=== PATIENT | female | born 1955 | race Caucasian/White ===

== ENCOUNTER → 2018-06-18 10:58 | Outpatient (CLI) | payer BC, SELFPAY ==
[2018-06-17 14:24] VITALS: BMI 33.0
[2018-06-22 14:40] LABS: HPV Reflexed? NOT INDICATED
== END ==
PROVIDERS: PCP Family Medicine; Visit Provider Family Medicine
DX: Z01.419 Encounter for gynecological examination (general) (routine) without abnormal findings (principal)
CPT/HCPCS: 88175; G0145

== ENCOUNTER 2021-04-03 15:57 | Outpatient (CLI) | payer OTHER, SELFPAY ==
[2021-04-03 16:49] LABS: ALB/GLOB Ratio 1.1 RATIO (0.9-2.4); AST(SGOT) 15 U/L (15-37); Alanine Aminotransfer ALT/SGPT 24 U/L (13-56); Albumin, Serum 3.9 g/dL (3.2-5.0); Alkaline Phosphatase 55 U/L (45-117); Anion Gap 5 (5-15); BUN 16 mg/dL (7-18); BUN/Creat Ratio 17.9 RATIO (10-20); Calcium,Total 8.6 mg/dL (8.5-10.1); Chloride 105 mmol/L (98-107); Creatinine, Serum 0.89 mg/dL (0.55-1.02); EST Glomerular Filtration Rate 68 mL/min (>60); Est Glom Filt Rate - Afr Amer 82 mL/min (>60); Globulin 3.7 g/dL (2.2-4.2); Glucose 104 mg/dL (74-106); Potassium 4.2 mmol/L (3.5-5.1); Protein, Total 7.6 g/dL (6.4-8.2); Sodium Level 139 mmol/L (136-145)
[2021-04-03 17:16] LABS: Vitamin D,25 Hydroxy 49.1 ng/mL
== END 2021-04-03 23:59 | disposition home or self-care (01) ==
LOC: BIMLAB 15:58
PROVIDERS: PCP Family Medicine; Referring Provider Family Medicine; Visit Provider Family Medicine
DX: R79.89 Other specified abnormal findings of blood chemistry (principal)
CPT/HCPCS: 36415; 80053; 82306

== ENCOUNTER 2021-05-09 10:43 | Outpatient (CLI) | payer OTHER, SELFPAY ==
--- NOTE | 2021-05-09 10:53 | BD_ITS ---
STUDY: DUAL ENERGY X-RAY ABSORPTIOMETRY / DXA REASON FOR EXAM: Female, 65 years old. Osteopenia TECHNIQUE: Bone Mineral Density (BMD) measurements of lumbar spine and bilateral hips were obtained. COMPARISON: None. FINDINGS: Lumbar Spine (L1-L4): g/cm2 (0.909) / T-score (-1.7) / Z-score (0.0) Findings are suggestive of osteopenia with a moderate fracture risk. Left Femur Total: g/cm2 (0.770) / T-score (-1.4) / Z-score (-0.3) Left Femoral Neck: g/cm2 (0.567) / T-score (-2.5) / Z-score (-1.1) Right Femur Total: g/cm2 (0.819) / T-score (-1.0) / Z-score (0.1) Right Femoral Neck: g/cm2 (0.564) / T-score (-2.6) / Z-score (-1.1) BD/Dexa Bone Density Study IMPRESSION: The patient is considered osteoporotic as outlined below according to World Dariusz Organization (WHO) criteria with a high fracture risk. Reference Information: The T-score is the number of standard deviations above or below the standard which is normal for young adults at their peak bone mineral density. The World Health Organization (WHO) interprets the T-scores as follows: Above -1 Normal bone density Between -1 and -2.5 Osteopenia Equal to / or below -2.5 Osteoporosis As a practical clinical guideline, osteopenia may be graded as follows: Mild -1 through -1.5 Moderate -1.6 through -2.0 Severe -2.1 through -2.4 The Z-score is the number of standard deviations above or below age-matched controls. A Z-score of less than -1.5 would be considered abnormal. References: 1. NIH Osteoporosis and Related Bone Diseases www osteo.org 2. International Society for Clinical Densitometry www iscd.org 3. National Osteoporosis Foundation www nof.org Electronically Signed: Wallace Mcallister MD at 10:13 EDT ,
== END 2021-05-09 23:59 | disposition home or self-care (01) ==
PROVIDERS: PCP Family Medicine; Visit Provider Family Medicine
DX: M85.80 Other specified disorders of bone density and structure, unspecified site (principal)
CPT/HCPCS: 77080

== ENCOUNTER → 2022-09-05 | Outpatient (CLI) | payer MEDICARE, SELFPAY ==
[2022-09-05 16:52] LABS: Absolute Lymphocyte Count 2.14 X10^3/uL (0.83-4.51); Absolute Neutrophil Count 2.9 X10^3/uL (2.0-7.7); Basophil# 0.04 X10^3/uL; Basophil% 0.7 % (0-1); Eosinophil# 0.06 X10^3/uL; Eosinophils% 1.1 % (0-5); Hematocrit 39.8 % (37-47); Hemoglobin 12.9 g/dL (12.0-15.0); Lymphocyte # 2.14 X10^3/ul (0.83-4.51); Lymphocyte % 37.5 % (19-41); Mean Corp Hgb Conc 32.4 g/dL (32-36); Mean Corpuscular Hgb 31.7 pg (27.0-32.0); Mean Corpuscular Volume 97.8 fL (81-99); Monocyte# 0.51 X10^3/uL; Monocyte% 8.9 % (0-10); NRBC Flagged by Analyzer 0 % (0-5); Neutrophil # 2.94 X10^3/uL (2.7-7.7); Neutrophil % 51.6 % (47-70); Platelet Count 273 K/mm3 (150-450); RBC Distribution Width SD 46.1 fl (35.1-43.9); Red Blood Count 4.07 M/mm3 (4.2-5.4); White Blood Count 5.7 K/mm3 (4.4-11.0)
[2022-09-05 17:32] LABS: Vitamin D,25 Hydroxy 67.1 ng/mL
[2022-09-05 17:34] LABS: Hemoglobin A1c 5.2 % (3.8-5.6)
[2022-09-05 17:47] LABS: AST(SGOT) 14 U/L (15-37); Alanine Aminotransfer ALT/SGPT 22 U/L (13-56); Albumin, Serum 3.7 g/dL (3.2-5.0); Alkaline Phosphatase 58 U/L (45-117); Anion Gap 4 (5-15); BUN 18 mg/dL (7-18); BUN/Creat Ratio 16.8 RATIO (10-20); Calcium,Total 8.7 mg/dL (8.5-10.1); Chloride 104 mmol/L (98-107); Cholesterol 224 mg/dL (200); Creatinine, Serum 1.07 mg/dL (0.55-1.02); EST Glomerular Filtration Rate 55 mL/min (>60); Est Glom Filt Rate - Afr Amer 66 mL/min (>60); Globulin 3.6 g/dL (2.2-4.2); Glucose 144 mg/dL (74-106); High Density Lipoprotein 48 mg/dL; Potassium 4.2 mmol/L (3.5-5.1); Protein, Total 7.3 g/dL (6.4-8.2); Sodium Level 137 mmol/L (136-145); Triglycerides 296 mg/dL; Very Low Density Lipoprotein 59 mg/dL (5-40)
== END | disposition home or self-care (01) ==
PROVIDERS: PCP Family Medicine; Referring Provider Family Medicine; Visit Provider Family Medicine
DX: Z00.00 Encounter for general adult medical examination without abnormal findings (principal); R79.89 Other specified abnormal findings of blood chemistry; M85.80 Other specified disorders of bone density and structure, unspecified site
CPT/HCPCS: 36415; 80053; 80061; 82306; 83036; 85025

== ENCOUNTER → 2022-10-03 | Outpatient (CLI) | payer MEDICARE, SELFPAY | END | disposition home or self-care (01) | LOC: BIMLAB 12:57 | PROVIDERS: PCP Family Medicine; Referring Provider Family Medicine; Visit Provider Family Medicine | DX: R73.01 Impaired fasting glucose (principal) ==

== ENCOUNTER → 2023-06-12 | Outpatient (CLI) | payer MEDICARE, SELFPAY ==
[2023-06-12 10:48] LABS: ALB/GLOB Ratio 0.9 RATIO (0.9-2.4); AST(SGOT) 16 U/L (15-37); Alanine Aminotransfer ALT/SGPT 19 U/L (13-56); Albumin, Serum 3.7 g/dL (3.2-5.0); Alkaline Phosphatase 50 U/L (45-117); Anion Gap 3 (5-15); BUN 15 mg/dL (7-18); BUN/Creat Ratio 17.2 RATIO (10-20); Calcium,Total 9.3 mg/dL (8.5-10.1); Chloride 105 mmol/L (98-107); Cholesterol 229 mg/dL (200); Creatinine, Serum 0.87 mg/dL (0.55-1.02); EST Glomerular Filtration Rate 69 mL/min (>60); Est Glom Filt Rate - Afr Amer 83 mL/min (>60); Globulin 3.9 g/dL (2.2-4.2); Glucose 107 mg/dL (74-106); High Density Lipoprotein 55 mg/dL; Potassium 4.6 mmol/L (3.5-5.1); Protein, Total 7.6 g/dL (6.4-8.2); Sodium Level 137 mmol/L (136-145); Triglycerides 195 mg/dL; Very Low Density Lipoprotein 39 mg/dL (5-40)
[2023-06-12 10:50] LABS: Vitamin D,25 Hydroxy 92.4 ng/mL
== END | disposition home or self-care (01) ==
LOC: BIMLAB 08:55
PROVIDERS: PCP Family Medicine; Visit Provider Family Medicine
DX: K29.60 Other gastritis without bleeding (principal); R79.89 Other specified abnormal findings of blood chemistry; M81.0 Age-related osteoporosis without current pathological fracture
CPT/HCPCS: 36415; 80053; 80061; 82306

== ENCOUNTER → 2023-07-08 | Outpatient (CLI) | payer MEDICARE, SELFPAY ==
--- NOTE | 2023-07-08 13:55 | BD_ITS ---
STUDY: DUAL ENERGY X-RAY ABSORPTIOMETRY / DXA REASON FOR EXAM: Female, 67 years old. Osteoporosis TECHNIQUE: Bone Mineral Density (BMD) measurements of lumbar spine and bilateral hips were obtained. COMPARISON: Comparison is made with prior study dated May 09, 2021. FINDINGS: Lumbar Spine (L1-L4): g/cm2 (0.962) / T-score (-0.8) / Z-score (1.0) Findings are suggestive of normal bone density with a low fracture risk. Left Femur Total: g/cm2 (0.765) / T-score (-1.5) / Z-score (-0.2) Left Femoral Neck: g/cm2 (0.529) / T-score (-2.9) / Z-score (-1.3) Right Femur Total: g/cm2 (0.817) / T-score (-1.0) / Z-score (0.2) Right Femoral Neck: g/cm2 (0.563) / T-score (-2.6) / Z-score (-1.0) The T-Scores on the most recent prior examination were: Lumbar Spine (L1-L4): There has been improvement of bone density since the previous examination. Left Femur Total: which represents a worsening of 0.7%. Right Femur Total: which represents a worsening of 0.2%. BD/Dexa Bone Density Study IMPRESSION: The patient is considered osteoporotic as outlined below according to World Dariusz Organization (WHO) criteria with a high fracture risk. There has been worsening of bone density since the previous examination. Reference Information: The T-score is the number of standard deviations above or below the standard which is normal for young adults at their peak bone mineral density. The World Health Organization (WHO) interprets the T-scores as follows: Above -1 Normal bone density Between -1 and -2.5 Osteopenia Equal to / or below -2.5 Osteoporosis As a practical clinical guideline, osteopenia may be graded as follows: Mild -1 through -1.5 Moderate -1.6 through -2.0 Severe -2.1 through -2.4 The Z-score is the number of standard deviations above or below age-matched controls. A Z-score of less than -1.5 would be considered abnormal. References: 1. NIH Osteoporosis and Related Bone Diseases www osteo.org 2. International Society for Clinical Densitometry www iscd.org 3. National Osteoporosis Foundation www nof.org Electronically Signed: Wallace Mcallister MD at 14:42 EDT ,
--- NOTE | 2023-07-08 13:56 | RAD_ITS ---
STUDY: X-RAY EXAMINATION: SCOLIOSIS SERIES REASON FOR EXAM: Female, 67 years old. Scoliosis TECHNIQUE: 3 view(s) of the thoracolumbar spine were obtained in the upright standing position. COMPARISON: None. FINDINGS: There is a 11.9 degree dextroscoliosis scoliosis of the lumbar spine with the apex of the convexity at the L2-L3 level. . There is multilevel endplate spondylosis of the thoracic vertebrae. There is multilevel disc space narrowing of the thoracic spine. There is multilevel disc space narrowing of the lumbar spine. The soft tissue structures are unremarkable. RAD/Scoliosis 2 or 3 views IMPRESSION: 11.9 degree dextro scoliosis centered at the L2-L3 level. Electronically Signed: Wallace Mcallister MD at 9:11 EDT ,
== END | disposition home or self-care (01) ==
PROVIDERS: PCP Family Medicine; Referring Provider Family Medicine; Visit Provider Family Medicine
DX: M81.0 Age-related osteoporosis without current pathological fracture (principal); M95.5 Acquired deformity of pelvis
CPT/HCPCS: 72082; 77080

== ENCOUNTER → 2023-10-24 | Outpatient (CLI) | payer MEDICARE, SELFPAY ==
--- NOTE | 2023-10-24 09:51 | MRI_ITS ---
STUDY: MRI LUMBAR SPINE WITHOUT CONTRAST REASON FOR EXAM: Female, 68 years old. back pain, b/l hip pain x 2 years no trauma TECHNIQUE: Standardized fat and water weighted pulse sequences were obtained in the sagittal and axial planes. COMPARISON: Lumbar spine x-rays September 25, 2023 FINDINGS: T12-L1: Normal endplates. Normal disc height, desiccation and minimal annular bulge. Normal bilateral facet joints. Normal central canal and bilateral lateral recesses. Normal bilateral intervertebral neural foramina. Normal lumbar lordosis. There is moderate to severe dextro scoliosis. Normal conus medullaris that terminates at L1 L1-2: There is narrowing of the disc space with degenerative endplate changes and desiccation of the disc with mild annular bulge and small left posterolateral disc/osteophyte protrusion. Normal bilateral facet joints. Normal central canal and bilateral lateral recesses. Mild right neural foraminal encroachment and mild to moderate narrowing on the left L2-3: Narrowed disc space with desiccation of the disc and minor annular bulge with left posterolateral/foraminal disc protrusion. Mild facet arthropathy.. Mild narrowing of the central canal. Normal bilateral lateral recesses. Mild right neural foraminal and severe left neural foraminal encroachment L3-4: Normal endplates. Normal disc height, desiccation mild annular bulge with tiny right foraminal disc protrusion.. Normal bilateral facet joints and thickening of ligamenta flava.. Mild narrowing of the central canal. Normal bilateral lateral recesses. Moderate right neural foraminal stenosis L4-5: Normal endplates. Normal disc height, desiccation and mild annular bulge with small central disc protrusion.. Mild facet arthropathy and thickening of ligamenta flava. Mild narrowing of the central canal. Normal bilateral lateral recesses. Moderate bilateral neural foraminal encroachment.. L5-S1: Normal endplates. Normal disc height, desiccation and minimal annular bulge with small right foraminal disc protrusion. Facet arthropathy and mild thickening of ligamenta flava. Normal central canal and bilateral lateral recesses. Mild left neural foraminal stenosis and more severe narrowing on the right Normal visualized sacral ala. Normal visualized paraspinous soft tissue structures. No significant change since prior exam given inherent differences in imaging modalities MRI/Spine Lumbar (Routine) IMPRESSION: No evidence for acute fracture or other significant bone pathology.. Scoliosis and degenerative changes. Multilevel spinal stenosis secondary to disc disease and bony hypertrophy with findings as above Electronically Signed: Sony Ram MD at 16:26 EDT ,
== END | disposition home or self-care (01) ==
LOC: MRI 09:49
PROVIDERS: PCP Family Medicine; Referring Provider Orthopaedic Surgery Orthopaedic Surgery of the Spine; Visit Provider Orthopaedic Surgery Orthopaedic Surgery of the Spine
DX: M41.56 Other secondary scoliosis, lumbar region (principal); M51.36 Other intervertebral disc degeneration, lumbar region
CPT/HCPCS: 72148

== ENCOUNTER 2024-01-27 09:00 | Outpatient (RCR) | payer MEDICARE, SELFPAY ==
--- NOTE | 2023-12-10 12:27 | HP.PTEVAL ---
Patient's Visit Information Visit Information Visit Information: YONY EISENBERG is a 68 year old F referred to Physical Therapy by Dr. Kareem Strauss MD with a diagnosis of LUMBAR RADICULOPATHY ,THORACIC. Date of Evaluation: 12/10/23 Physical Therapist: Kg Collins, PT, Cert MDT, OCS Visit Plan Frequency: 2x /Week Duration: 4 Weeks Plan: RECENTLY DIAGNOSED WITH OSTEOPOROSIS PT INTERVENTIONS DLS ,POSTURAL EX'S ,LE FLEXABILITY ,LE STRENGTHENING AND MODALITIES NEEDED Subjective Subjective: This 68 y/o female presents to physical therapy with lumbar radiculopathy. Patient has had lumbar radiculopathy for 2 years . Patient initially seen DR Caal reviewed MRI showed protrusion disc ,stenosis ,DDD/spurs and had x-rays DDD . Recommend pain management and needed therapy for any injections . Patient also has had bone density showed osteoporosis femur severe and min back. Patient located symmetrical lumbar left lateral hip . Aggravating walking/standing ,bending/lifting. Alleviating sitting ,rest. coughing/sneezing -. Bowel/bladder-. Patient plans to start osteoporosis injection every 6 months. Patient condition affects QOL and function/housework . Patient goals to decrease pain. SOCIAL: single VOCATION: [employer] Pain Bilateral Back: Pain Intensity (Out of 10): 3 Pain Intensity Range: 10 Left Lower Extremity: Pain Intensity (Out of 10): 4 Pain Intensity Range: 10 Objective Objective: POSTURE: mild forward posture GAIT: reciprocal pattern PALPATION: unremarkable NEURO: denies paresthesia/tingling ,reflexes L3-4,L4-5,L5-S1 2/3 FLEXABILITY: hamstrings min tight MMT: quads/hams 4/5 ,hip flexion 4/5 ,ankle 4/5 LUMBAR ROM: flexion mod loss ,extension mod loss ,side glides mod loss Special Tests L/S Slump test left side: Negative L/S Slump test right side: Negative L/S Left Straight Leg Raise: Negative L/S Right Straight Leg Raise: Negative Lumbar Standing: Flexion - Mechanical Response: No effect Lumbar Standing: Flexion - Symptoms During Testing: Increases Lumbar Standing: Flexion - Symptoms After Testing: No worse Comments:: BACK Lumbar Standing: Extension - Mechanical Response: No effect Lumbar Standing: Extension - Symptoms During Testing: Increases Lumbar Standing: Extension - Symptoms After Testing: No worse Lumbar Standing: Right Side Glides - Mechanical Response: No effect Lumbar Standing: Right Side [place] - Symptoms During Testing: Increases Lumbar Standing: Right Side [place] - Symptoms After Testing: No worse Lumbar Standing: Left Side [place] - Mechanical Response: No effect Lumbar Standing: Left Side [place] - Symptoms During Testing: No effect Lumbar Standing: Left Side [place] - Symptoms After Testing: No effect Lumbar Lying: Flexion - Mechanical Response: No effect Lumbar Lying: Flexion - Symptoms During Testing: No effect Lumbar Lying: Flexion - Symptoms After Testing: No effect Lumbar Lying: Extension - Mechanical Response: No effect Lumbar Lying: Extension - Symptoms During Testing: Increases Lumbar Lying: Extension - Symptoms After Testing: Worse Comments:: LEFT LEG Balance/Special Test Scores Oswestry Low Back Score: 24 Goals Goal 1:: Patient to be I with HEP for back Goal Time Frame: 4-6 Weeks Goal 2:: Patient to improve lumbar ROM for function of recovery for ADL and job demands Goal Time Frame: 4-6 Weeks Goal 3:: Patient to demonstrate 50% improvement with less pain and improved function Goal Time Frame: 4-6 Weeks Goal 4:: Patient to improve back oswestry score by 5 points to improve function Goal Time Frame: 4-6 Weeks Goal 5:: Patient to be able perform ADLS and housework tasks with min linations Goal Time Frame: 4-6 Weeks Rehabilitation Potential Physical Therapy Diagnosis: Patient lumbar radiculopathy with stenosis ,protruding disc from MRI along with recently diagnosis with osteoporosis with pain back and left leg with pain with standing/walking and increases with positioning and motion testing thus benefit from skilled PT Rehabilitation Potential: Good Anticipated Interventions Patient/Client Instruction: Educate patient on: Condition and Plan of Care For the Purpose of:: To decrease pain, To increase ROM, To improve muscle performance and motor function, To improve ability to perform ADL's, To increase tolerance to activity/condition/position, To improve ability of physical actions for home/community/work/leisure, To improve health of tissue, To decrease soft tissue restriction, To increase flexibility/ROM and To improve tolerance to ADL's Therapeutic Exercise to Include: Strength training, Body mechanics, Postural training, Flexibilty training and Dynamic Lumbar Stabilization For the Purpose of:: To decrease pain, To increase ROM, To improve muscle performance and motor function, To improve ability to perform ADL's, To increase tolerance to activity/condition/position, To improve ability of physical actions for home/community/work/leisure, To improve health of tissue, To decrease soft tissue restriction, To increase flexibility/ROM and To improve tolerance to ADL's TENS: Yes IF ES: Yes Cryotherapy (ice pack, ice massage): Yes Thermo therapy (hot pack): Yes Ultrasound (thermal/non thermal): Yes For the Purpose of:: To decrease pain, To increase ROM, To improve nutrient delivery to tissue, To increase oxygenation perfusion, To improve health of tissue, To decrease soft tissue restriction and To increase flexibility/ROM Text: Thank you for the opportunity to evaluate your patient. For Medicare and Medicare HMO plans, please review the plan of care and approve it. It will need to be FAXED BACK to us at [phone] for Medicare purposes. For Medicare only, by signing this I certify the plan of care. Please let me know if there are questions or concerns regarding this plan of care. Physician Signature: Date:
--- NOTE | 2024-01-27 10:01 | HP.PTDCSUM ---
Discharge Summary D/C summary: It has been my pleasure to treat YONY EISENBERG referred by Dr. Kareem Strauss MD, with the diagnosis of LUMBAR RADICULOPATHY ,THORACIC for a total of 8 visit(s). Discharge Date: 01/27/24 Please see the following information for a summary of their discharge status. Subjective Subjective: Rehab went well ,but hips get painful Pain constant and intensity pain changes throughout day Plan to see pain management Pain Bilateral Back: Pain Intensity (Out of 10): 4 Left Lower Extremity: Pain Intensity (Out of 10): 4 Overall Improvement % Improvement: 20 Objective Objective/Function: POSTURE: mild forward posture GAIT: reciprocal pattern PALPATION: unremarkable NEURO: denies paresthesia/tingling ,reflexes L3-4,L4-5,L5-S1 2/3 FLEXABILITY: hamstrings min tight MMT: quads/hams 4/5 ,hip flexion 4/5 ,ankle 4/5 LUMBAR ROM: flexion mod loss ,extension mod loss ,side glides mod loss Goals Goal 1:: Patient to be I with HEP for back Goal Progress: Goal Met Goal 2:: Patient to improve lumbar ROM for function of recovery for ADL and job demands Goal Progress: Progressing Goal 3:: Patient to demonstrate 50% improvement with less pain and improved function Goal Progress: Progressing Goal 4:: Patient to improve back oswestry score by 5 points to improve function Goal Progress: Progressing Goal 5:: Patient to be able perform ADLS and housework tasks with min linations Goal Progress: Progressing Plan Plan: D/C RTD FOR PAIN MANAGEMENT FOR INJECTION D/C Information Discharge Comments: RTD d/c sentence: If there are questions or concerns regarding this patient's physical therapy, please feel free to call me at [phone]. Thank you for the referral of this patient. Sincerely, Kg Collins, PT, Cert MDT, OCS Balance/Gait/Functional tests Balance/Special Test Scores Oswestry Low Back Score: 16 Improvement % Improvement: 20
== END 2024-01-27 19:00 | disposition home or self-care (01) ==
LOC: PT 09:00
PROVIDERS: PCP Family Medicine; Referring Provider Anesthesiology; Visit Provider Anesthesiology
DX: M54.16 Radiculopathy, lumbar region (principal); M79.18 Myalgia, other site
CPT/HCPCS: 97110; 97162; 97530

== ENCOUNTER → 2024-03-15 | Outpatient (CLI) | payer MEDICARE, SELFPAY ==
--- NOTE | 2024-03-15 12:15 | RAD_ITS ---
EXAM: XR Left Knee Complete, 4 or More Views CLINICAL INDICATION: TECHNIQUE: Four or more views of the left knee. COMPARISON: No relevant prior studies available. FINDINGS: BONES/JOINTS: Unremarkable. No acute fracture. No dislocation. SOFT TISSUES: Unremarkable. RAD/Knee 4 or More Views IMPRESSION: No acute fracture. Reading Location[facility]
== END | disposition home or self-care (01) ==
LOC: RAD 12:03
PROVIDERS: PCP Internal Medicine; Referring Provider Anesthesiology; Visit Provider Anesthesiology
DX: M25.562 Pain in left knee (principal)
CPT/HCPCS: 73564

== ENCOUNTER → 2024-11-30 | Outpatient (CLI) | payer MEDICARE, SELFPAY ==
--- NOTE | 2024-11-30 09:36 | MRI_ITS ---
PROCEDURE: SPINE LUMBAR (ROUTINE) 11/30/2024 REASON FOR EXAM: RADICULOPATHY TECHNIQUE: Procedure Code: MRISPL Modality: MR Procedure: SPINE LUMBAR (ROUTINE) FINDINGS: Normal lumbar vertebral body height. There is no compression deformity. There is no marrow disturbance. There is no retroperitoneal mass. The abdominal aorta is normal in caliber. L1-L2 exhibits a left paracentral shallow disc bulge without significant spinal stenosis. At L2-3 disc space narrowing is present with facet degeneration. There is a left foraminal protrusion which impinges the left L2 nerve within the foramen. At L3-4, facet arthrosis is present without central spinal canal narrowing. Mild inferior foraminal narrowing bilaterally. At L4-5 central protrusion produces mild canal narrowing indenting the ventral thecal sac. Inferior foraminal narrowing on the right At L5-S1, negative for central spinal stenosis. Positive for asymmetric right L5 foraminal nerve impingement from disc MRI/Spine Lumbar (Routine) IMPRESSION: 1. Left L2 and right L5 foraminal nerve compression. 2. Mild canal narrowing at L4-5. Reading [facility]
== END | disposition home or self-care (01) ==
PROVIDERS: PCP Internal Medicine; Referring Provider Internal Medicine; Visit Provider Internal Medicine
DX: M51.360 Other intervertebral disc degeneration, lumbar region with discogenic back pain only (principal); M54.10 Radiculopathy, site unspecified
CPT/HCPCS: 72148

== ENCOUNTER → 2025-01-04 | Outpatient (CLI) | payer MEDICARE, SELFPAY ==
--- NOTE | 2025-01-04 10:02 | NEURO ---
NCS and/or EMG Patient Report Ordering Doctor: Bulmaro Caal DATE OF SERVICE: 01/04/25 Clinical Summary: 69 year old female patient with primarily hip/thigh pain and/or numbness. Nerve Conduction Studies Summary: Nerve conduction studies performed in the bilateral lower extremities were normal. Needle Examination Summary: Needle examination of select muscles of the bilateral lower extremities was normal. Impression: This is a normal study. There is no electrodiagnostic evidence of a left/right lumbar radiculopathy or large-fiber peripheral polyneuropathy. Note: please be aware that a normal EMG/NCS study does not completely rule out the presence of a radiculopathy. Multi Select Codes Neurology Neurology Interp Codes: 69395-05 Musc test done w/n test comp (interp) (2) and 09294-51 Nrv cndj test 7-8 studies (interp)
== END | disposition home or self-care (01) ==
LOC: PSN 08:49
PROVIDERS: PCP Internal Medicine; Referring Provider Orthopaedic Surgery Orthopaedic Surgery of the Spine; Visit Provider Orthopaedic Surgery Orthopaedic Surgery of the Spine
DX: M54.16 Radiculopathy, lumbar region (principal)
CPT/HCPCS: 95886; 95910